=== PATIENT | female | born 1985 | race Caucasian/White ===

== ENCOUNTER 2019-11-12 10:56 | Emergency (ER) | payer OTHER ==
[~2019-11-12] VITALS: Ht 162.6 cm; Wt 100.2 kg
[~2019-11-12 10:56] MED LIST: COL100 PO; LOP600 PO; NORCO1 TA1 PO; ZES20 PO
[2019-11-12 11:09] VITALS: Ht 162.6 cm; Wt 100.2 kg
[2019-11-12 13:46] VITALS: BP 135/78
== END 2019-11-12 13:46 | disposition home or self-care (01) ==
LOC: ED 10:56
DX: M76.62 Achilles tendinitis, left leg (principal); I10 Essential (primary) hypertension; Z88.0 Allergy status to penicillin
CPT/HCPCS: Q0092

== ENCOUNTER 2020-02-12 12:07 | Emergency (ER) | payer OTHER ==
[~2020-02-12] VITALS: Ht 154.9 cm; Wt 98.9 kg
[2020-02-12 12:22] VITALS: Ht 154.9 cm; Wt 98.9 kg
[2020-02-12 14:50] VITALS: BP 180/94
== END 2020-02-12 15:14 | disposition home or self-care (01) ==
LOC: ED 12:07
DX: J02.9 Acute pharyngitis, unspecified (principal); I10 Essential (primary) hypertension; Z88.0 Allergy status to penicillin

== ENCOUNTER 2020-09-23 09:36 | Emergency (ER) | payer OTHER ==
[~2020-09-23] VITALS: Ht 157.5 cm; Wt 102.1 kg
[2020-09-23 09:39] VITALS: Ht 157.5 cm; Wt 102.1 kg
[2020-09-23 12:24] VITALS: BP 148/82
== END 2020-09-23 12:24 | disposition home or self-care (01) ==
LOC: ED 09:36
DX: R51.9 Headache, unspecified (principal); H53.8 Other visual disturbances; I10 Essential (primary) hypertension; Z88.0 Allergy status to penicillin